=== PATIENT | male | born 1970 | race Two or more races ===

== ENCOUNTER 2025-01-05 01:17 | Observation (INO) | payer OTHER, SELFPAY ==
[2025-01-04 18:03] VITALS: BP 144/97; BMI 23.1
--- NOTE | 2025-01-04 19:37 | ED.GENMED ---
History of Present Illness
General
Chief Complaint: Abnormal Lab Value
Time Seen by Provider: 01/04/25 19:04
History of Present Illness
History of Present Illness:
54-year-old male history of CHF, lung abscess currently on Ceftriaxone, Flagyl and vancomycin for the past 2 months presenting [address] chest. Patient states that he had outpatient CT chest that showed bilateral pulmonary embolism prompting
ED evaluation. Patient reports pleuritic right-sided chest pain for the past few weeks. Patient denies fever, cough, or shortness of breath. Patient is not on blood thinners. Patient denies any history of DVT/PE.
Phy Exam
Physical Exam
Physical Exam:
General: Alert, no acute distress
Head: NCAT
Eyes: clear conjunctiva
Neck: supple
Cardiac: regular rate and rhythm, no murmur
Lungs: clear to auscultation bilaterally. No wheezes, rales, or rhonchi. Speaking full unlabored sentences. No respiratory distress.
Abdomen: soft, nondistended nontender. No rebound or guarding.
MSK: no lower extremity edema bilaterally. No deformity. PICC line right upper extremity with no surrounding erythema or swelling.
Skin: warm, dry
Neuro: Alert and oriented x3. no focal deficits
Scores
PESI
Age: 54
Sex: Male
History of cancer: No
History of heart failure: Yes
History of chronic lung disease: No
Heart rate >/= 110: No
Systolic BP <100 mmHg: No
Respiratory rate >/= 30: No
Temperature <36�C/96.8�F: No
Altered mental status (disorientation, lethargy, stupor, or coma): No
O2 saturation <90%: No
Score: 73
Class: Class 2: <86 (low mortality 1.7-3.5%)
Course
Orders/Labs/Results
Orders:
Orders
01/04/25 19:49
CBC/With Diff [Complete Blood Count/With Diff] Urgent
CMP [Comprehensive Metabolic Panel] Urgent
NT-proBNP Urgent
Protime/PTT Urgent
Troponin I Urgent
01/04/25 20:06
EKG [Electrocardiogram (*1)] Urgent
Reason for Study: Chest Pain
EKG- Treatment ONCE
01/04/25 22:53
Heparin 5,800 units IV NOW STA
Nursing to Place Non Medication Order As Directed
Physician Order: PTT 6 hours after initial start of Heparin infusion
01/04/25 23:00
Flush (0.9% Sodium Chloride) [Flush (Nss)] See Dose Instructions IV PER PROTOCOL
Heparin 21631 Units/250 ml 25,000 units in 250 ml IV PER PROTOCOL
Weight to be used for heparin protocol in kilograms (kg):: 72.9
Protocol:: DVT/PE
PTT Goal Range to be used:: PTT 73 to 111 seconds
Order type:: Initial
INITIAL Infusion Dose (UNITS/KG/hr) & then follow protocol:: 18 units/kg/hr
Infusion Dose in UNITS/hr & then follow protocol (UNITS/hr):: 1,300
INFUSION RATE in mL/hr & then follow protocol (mL/hr):: 13
For DVT/PE algorithm, re-bolus for low PTT?: Yes
PTT less than or equal to 64 seconds:: Re-bolus 80 units/kg (max 10,000units). Increase by 300 units/hr
(+ 3mL/hr)
PTT 64.1 to 72.9 seconds:: Re-bolus 40 units/kg (max 5,000 units). Increase by 100 units/hr
(+ 1mL/hr)
PTT 73 to 111 seconds:: Target Range. No change in rate.
PTT 111.1 to 130.9 seconds:: Decrease rate by 100 units/hr (- 1 mL/hr)
PTT 131 to 199.9 seconds:: HOLD for 1 hr. Then decrease by 200 units/hr (- 2mL/hr)
PTT greater than or equal to 200 seconds:: HOLD for 2 hrs & Notify Provider. Then decrease by 300 units/hr
(- 3mL/hr)
Lab follow-up:: Each change, PTT q6h until 2 consecutive are therapeutic. Then
PTT daily.
01/04/25 23:16
Heparin 5,800 units IV PRN PRN
01/04/25 23:17
Heparin 2,900 units IV PRN PRN
01/05/25 00:10
Portable Chest Xray [CR Chest Portable - 1 View] Urgent
Comment:
Reason For Exam: PICC PLACEMENT
Reason Study Needs to be Portable: Unable to Transport
01/05/25 00:37
Admit/Transfer Patient As Directed
Co-Sign Provider:
Level of Care: Observation services
Assign to:: Telemetry
Physician / Group: hospitalist
Diagnosis: pulmonary embolism
Reason for Telemetry: Other
Other Reason for Telemetry: pulmonary embolism
Date to Stop Telemetry: 01/07/25
Time to Stop Telemetry: 11:00
01/05/25 00:38
PRN Pain Medication Management As Directed
May give lesser potent ordered pain med per pt: Yes
preference::
Protocol:: Medication orders for pain may be administered in a
manner that supports deferring to patient preference
when the pt is:
- Requesting an ordered lesser potent pain medication.
Least to most potent pain medications are defined
as: acetaminophen < NSAID < tramadol < opioids
(morphine, oxycodone, hydromorphone).
- Requesting a lesser dose of the same medication IF
ORDERED.
- Requesting a less intrusive route of administration
if both routes are prescribed by the provider (PO <
IV).
01/05/25 00:40
Code Status As Directed
Resuscitation Status: Full Code
01/05/25 05:45
PTT Routine
01/07/25 11:00
DC Protocol for Telemetry ONCE
Abnormal Lab Results
01/04/25 01/04/25
19:49 23:35
RBC 4.13 L 10^6/uL
(4.70-6.10)
Hgb 10.3 L g/dL
(13.0-18.0)
Hct 33.6 L %
(39.0-52.0)
MCH 24.9 L pg
(27.0-31.0)
MCHC 30.7 L g/dL
(33.0-37.0)
RDW 17.9 H %
(11.5-14.5)
Abs Immat Gran (auto) 0.1 H 10^3/uL
(0-0.05)
Absolute Lymphs (auto) 3.7 H 10^3/uL
(1.2-3.4)
Absolute Monos (auto) 0.7 H 10^3/uL
(0.1-0.6)
Immature Gran % 1.0 H %
(0-0.5)
Neutrophils % 32.1 L %
(42.2-75.2)
Monocytes % 9.9 H %
(1.7-9.3)
Chloride 112 H mmol/L
(98-107)
Carbon Dioxide 19 L mmol/L
(22-30)
Total Protein 6.1 L g/dl
(6.3-8.2)
Albumin 3.1 L g/dl
(3.5-5.0)
POC Glucose 189 H mg/dl
(70-99)
01/04/25 19:49
01/04/25 19:49
Vital Signs
Initial and Last Documented VS:
Initial Vital Signs
Temp Pulse Resp BP Pulse Ox
98.2 F 78 12 144/97 100
01/04/25 18:03 01/04/25 18:03 01/04/25 18:03 01/04/25 18:03 01/04/25 18:03
Last Documented Vital Signs
Temp Pulse Resp BP Pulse Ox
97.8 F 89 16 139/93 99
01/05/25 00:00 01/05/25 00:01 01/05/25 00:01 01/05/25 00:01 01/05/25 00:01
MDM/Problems Addressed
MDM/Problems Addressed:
CT chest with contrast completed outpatient earlier today reviewed. Shows 1. Right lower lobe pulmonary abscess measuring 4.0 x 2.7 x 2.6 cm. 2. Small right pleural effusion. 3. Pulmonary thromboembolus involving segmental branches of the bilateral
lower lobes. Overall low clot burden. No evidence for right heart strain. As read by radiology
Labs reviewed, troponin and probnp within normal limits.
EKG shows NSR at 83bpm with [place] 146 QTc 446 no acute ischemic changes.
Started patient on Heparin
Discussed with hospitalist for admission
*Critical Care Note
Total Time (30-74mins, 75-104mins- exclusive of procedures): Not Applicable
ED Attending Note
-
Portions of this chart may have been created with voice recognition software.� Occasional wrong word or��sound alike� substitutions may have occurred due to the inherent limitations of voice recognition software.
Discharge Plan
Departure
Patient Disposition: Admit
Date of Disposition: 01/04/25
Time of Disposition: 22:59
Presentation/result/management discussed w/ accepting MD/DO: Hospitalist
Discharge Problem:
Bilateral pulmonary embolism, Abscess of lung
Interventions
Interventions:
*Risk Screen - Suicide Last Done: 01/04/25 18:03
*General Assessment Last Done: 01/04/25 18:03
*Neglect/Abuse Screening Last Done: 01/04/25 18:03
ED- Fall Risk Assessment Last Done: 01/04/25 19:31
*ED COVID-19 Vaccine History Last Done: 01/04/25 19:31
[2025-01-04 20:07] LABS: Hematocrit 33.6 % (39.0-52.0); Hemoglobin 10.3 g/dL (13.0-18.0); Mean Corp Hgb Conc. 30.7 g/dL (33.0-37.0); Mean Corpuscular Hgb 24.9 pg (27.0-31.0); Mean Corpuscular Volume 81.4 fL (80.0-94.0); Platelet Count 353 10^3/uL (130-400); Red Blood Cell Count 4.13 10^6/uL (4.70-6.10); Red Cell Dist. Width 17.9 % (11.5-14.5); White Blood Cell Count 7.2 10^3/uL (4.8-10.8)
[2025-01-04 20:12] LABS: PT 13.7 Sec (11.4-14.6)
[2025-01-04 20:13] LABS: APTT 29.1 Sec (23.4-35.0)
[2025-01-04 20:20] LABS: ALT (SGPT) 11 U/L (0-50); AST (SGOT) 19 U/L (17-59); Albumin 3.1 g/dl (3.5-5.0); Alkaline Phosphatase 82 U/L (38-126); Blood Urea Nitrogen 11 mg/dl (9-20); Calcium 9.2 mg/dl (8.4-10.2); Carbon Dioxide 19 mmol/L (22-30); Chloride 112 mmol/L (98-107); Estimated Creatinine Clearance 80 ml/min; Glucose 91 mg/dl (70-99); Sodium 140 mmol/L (135-145); Total Bilirubin 0.3 mg/dl (0.2-1.3); Total Protein 6.1 g/dl (6.3-8.2); eGFR > 60.00
[2025-01-04 20:32] LABS: NT-proBNP 45.8 pg/ml; Troponin I < 0.012 ng/ml
[2025-01-04 20:33] LABS: % Monocytes 9.9 % (1.7-9.3); % Neutrophils 32.1 % (42.2-75.2); Absolute Basophils 0.1 10^3/uL (0-0.2); Absolute Eosinophils 0.4 10^3/uL (0-0.7); Absolute Immature Granulocytes 0.1 10^3/uL (0-0.05); Absolute Lymphocytes 3.7 10^3/uL (1.2-3.4); Absolute Monocytes 0.7 10^3/uL (0.1-0.6); Absolute Neutrophils 2.3 10^3/uL (1.4-6.5); Nucleated Red Blood Cells % 0 % (-)
[2025-01-04 20:39] LABS: Anisocytosis 2+; Macrocytosis 2+; Normal RBC Morphology No
[2025-01-04 20:40] LABS: Hypochromasia 2+; Ovalocytes Occasional; Target Cells 1+; Tear Drop Red Blood Cells 1+
--- NOTE | 2025-01-04 21:30 | VATNOTE ---
[facility] WITH 5FR SL R PICC INSERTED AT [facility] FOR HOME ABX ON UNKNOWN DATE. DRSG C/D/I. PICC FLUSHES WELL AND HAS A GOOD BR. CAP CHANGED. AWAITING CXR FOR TIP LOCATION. PCN AWARE OF INTERVENTION.
[2025-01-04 22:00] VITALS: BP 156/97
[2025-01-04 23:00] VITALS: BP 115/63
[2025-01-04] MEDS: HEPARIN 5800 UNITS IV (23:31)
[2025-01-04] MEDS: HEPARIN 25000 UNITS/250 ML IV (23:36)
[2025-01-04 23:37] LABS: Glucose - Point of Care 189 mg/dl (70-99)
[2025-01-05] VITALS (9 sets, daily range): BP systolic 119–141; BP diastolic 76–104; BMI 22.5; BMI 22.2; BMI 20.7
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
[2025-01-05] MEDS: DILAUDID 0.5 MG IV (02:01)
[2025-01-05] MEDS: FLAGYL 500 MG PO ×4 (02:01→23:41)
[2025-01-05 06:35] LABS: Hematocrit 32.6 % (39.0-52.0); Hemoglobin 10.4 g/dL (13.0-18.0); Mean Corp Hgb Conc. 31.9 g/dL (33.0-37.0); Mean Corpuscular Hgb 25.8 pg (27.0-31.0); Mean Corpuscular Volume 80.9 fL (80.0-94.0); Mean Platelet Volume 9.6 fL (7.4-10.4); Platelet Count 373 10^3/uL (130-400); Red Blood Cell Count 4.03 10^6/uL (4.70-6.10); Red Cell Dist. Width 17.7 % (11.5-14.5); White Blood Cell Count 10.8 10^3/uL (4.8-10.8)
[2025-01-05 06:49] LABS: APTT 155.3 Sec (23.4-35.0)
[2025-01-05 10:00] LABS: Glucose - Point of Care 83 mg/dl (70-99)
[2025-01-05] MEDS: ROCEPHIN 2000 MG IV (10:08)
[2025-01-05] MEDS: VANCOCIN 200 IV (10:08)
[2025-01-05] MEDS: STERILE WATER FOR INJECTION 20 ML IV (10:09)
[2025-01-05] MEDS: TOPAMAX 25 MG PO ×2 (10:10→21:50)
[2025-01-05] MEDS: VITAMIN B-12 100 MCG PO (10:10)
[2025-01-05] MEDS: ALDACTONE 12.5 MG PO (10:10)
[2025-01-05] MEDS: PROTONIX 40 MG PO ×2 (10:10→17:19)
[2025-01-05] MEDS: NEURONTIN 200 MG PO ×2 (10:10→21:49)
[2025-01-05] MEDS: FOLVITE 1 MG PO (10:10)
[2025-01-05] MEDS: ZESTRIL 10 MG PO (10:11)
[2025-01-05] MEDS: CYMBALTA DELAYED RELEASE 60 MG PO (10:11)
[2025-01-05] MEDS: KEPPRA 1000 MG PO ×2 (10:11→21:49)
[2025-01-05] MEDS: COREG 25 MG PO ×2 (10:11→21:49)
[2025-01-05] MEDS: FEOSOL 325 MG PO (10:11)
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
--- NOTE | 2025-01-05 13:30 | CM ---
CM was requested to obtain medical records from [facility]. CM requested assistance from ED community services coordinator.
[2025-01-05 13:40] LABS: Glucose - Point of Care 122 mg/dl (70-99)
[2025-01-05 14:53] LABS: APTT 41.9 Sec (23.4-35.0)
[2025-01-05] MEDS: HEPARIN 5800 UNITS IV (15:31)
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
--- NOTE | 2025-01-05 17:09 | CON.ID ---
Consultation
-
Date/Time Consultation Requested: 01/05/2025 0127
Date/Time Consultation Performed: 01/05/2025 1710
Requesting Provider: Neeraj
Performing Provider: Jen
Reason for Consultation: Pulmonary abscess
Chief Complaint / Past History
History of Present Illness
Clive Peter is a 54-year-old incarcerated male being evaluated in Infectious Diseases consultation regarding pulmonary abscess. History is obtained from chart review, along with patient interview, and review of old records contained in the
outpatient EMR system.
The patient recently was hospitalized at [facility] for necrotizing pneumonia and multifocal lung abscess secondary to MRSA and Klebsiella pneumoniae.
According to the history, the patient had [facility] Staff there evidently witnessed a fall and tonic-clonic seizure. A CT scan of the chest on 11/24 revealed bilateral lower lobe consolidation with
central lucencies concerning for aspiration pneumonia. Additional concern was for ongoing aspiration secondary to vocal cord dysfunction. Bronchoscopy was performed, with recovery of MRSA and Klebsiella, and he was discharged from [facility] on
12/06. [facility] and seen in the outpatient setting on 01/01. At that time, antibiotics were restarted, to continue with an additional 2 weeks of antibiotics, with actual duration dependent upon
follow-up imaging. A repeat CT scan was performed yesterday, which revealed improvement in size of the abscess, but also the findings of PE.
At this time, he denies any fevers. He does admit to cough, but no shortness of breath.
Past History
Additional Past Medical History:
DM
Subdural hematoma
Additional Past Surgical History:
Right femur intramedullary penelope (01/08/2024)
Allergy History:
aspirin Allergy (Unknown, Verified 01/04/25 18:03)
Unknown
Penicillins Allergy (Unknown, Verified 01/04/25 18:03)
Unknown
Medications Reviewed: Yes
Current Antibiotics:
Vancomycin 1 g every 24 hours
Ceftriaxone 2 g IV every 24 hours
Metronidazole 500 mg p.o. every 8 hours
Social History
Tobacco: Former Smoker
Alcohol: Occasional
Drug: Former User
Personal: Single
Living: Detention
Employment: Not Employed
Family History
Family History: Not Pertinent
Review of Systems
Vital Signs
Temp Pulse Resp BP Pulse Ox
98.5 F 86 11 119/77 99
01/05/25 16:24 01/05/25 16:00 01/05/25 16:00 01/05/25 15:50 01/05/25 13:00
Physical Exam
Physical Exam
Constitutional: No Acute Distress, Comfortable and Non-toxic
Eyes: No Conjunctival Hemorrhage and Sclera Anicteric
Oral: No Thrush and No Ulcers
Cardiovascular: Regular Rate and S1/S2; Negative S3/S4
Pulmonary: Coarse and Non Labored; Negative Wheezes or Rales
Gastrointestinal: Soft, Non Tender and Non Distended
Extremities: Negative Edema, Cyanosis or Erythema
Neurological: Awake and Alert
Psychological: Calm
Lines: PICC (Right upper extremity; exit site without erythema or tenderness)
Lab / Diagnostic Study Results
01/05/25 06:17
01/04/25 19:49
Abs Immat Gran (auto) 0.1 10^3/uL (0-0.05) H 01/04/25 19:49
Absolute Neuts (auto) 2.3 10^3/uL (1.4-6.5) 01/04/25 19:49
Absolute Lymphs (auto) 3.7 10^3/uL (1.2-3.4) H 01/04/25 19:49
Absolute Monos (auto) 0.7 10^3/uL (0.1-0.6) H 01/04/25 19:49
Absolute Basos (auto) 0.1 10^3/uL (0-0.2) 01/04/25 19:49
Immature Gran % 1.0 % (0-0.5) H 01/04/25 19:49
Neutrophils % 32.1 % (42.2-75.2) L 01/04/25 19:49
Lymphocytes % 51.0 % (20.5-51.1) 01/04/25 19:49
Monocytes % 9.9 % (1.7-9.3) H 01/04/25 19:49
Eosinophils % 5.0 % (0-6) 01/04/25 19:49
Basophils % 1.0 % (0-2) 01/04/25 19:49
PT 13.7 Sec (11.4-14.6) 01/04/25 19:49
INR 1.00 01/04/25 19:49
Microbiology Results
Micro:
01/05/25 01:54 MRSA Screen - Pending
Nose
Imaging:
01/04/2025 CT chest with IV contrast: A right lower lobe pulmonary abscess measures 4.0 x 2.7 x 2.6 cm. Small right pleural effusion is noted. There are pulmonary thromboembolus involving segmental branches of the bilateral lower lobes. Overall
low clot burden. No evidence for right heart strain.
Assessment / Plan
Pulmonary abscess; right lower lobe
-On IV antibiotics
-Per notes, size has decreased from 7 cm to 5 cm, and now to 4 cm on most recent imaging
Pulmonary embolus
Recommendations:
In review of outpatient notes, the patient was restarted on antibiotic therapy, to continue for at least an additional 2 weeks.
At present, can return to correctional facility on IV antibiotics.
He will be followed up by ID in the outpatient setting.
Weekly Vanco levels to prevent nephrotoxicity.
Weekly baseline labs, including CBC, BMP and LFTs.
Care Review
Plan reviewed with: Physician (Hospitalist)
[2025-01-05 17:23] LABS: Glucose - Point of Care 134 mg/dl (70-99)
[2025-01-05] MEDS: SEROQUEL 50 MG PO (21:50)
[2025-01-05] MEDS: HEPARIN 25000 UNITS/250 ML IV (21:55)
--- NOTE | 2025-01-05 22:00 | PTCARENOTE ---
Pt. admitted from E.D., AAO x 3, NSR on monitor, vs stable, call osborne within reach.
[2025-01-05 22:04] LABS: APTT > 200 Sec (23.4-35.0)
[2025-01-05 22:18] LABS: Glucose - Point of Care 133 mg/dl (70-99)
[2025-01-05] MEDS: LANTUS 0.15 UNITS SC (22:21)
[2025-01-06 03:04] VITALS: BP 100/66
[2025-01-06] MEDS: VANCOCIN 200 IV (05:37)
[2025-01-06 05:48] VITALS: BMI 22.2
[2025-01-06] MEDS: FLUSH (NSS) 2 FLUSH IV (06:06)
[2025-01-06 07:00] VITALS: BP 110/72
[2025-01-06 07:03] LABS: Glucose - Point of Care 145 mg/dl (70-99)
[2025-01-06 08:28] LABS: Blood Urea Nitrogen 13 mg/dl (9-20); Carbon Dioxide 21 mmol/L (22-30); Chloride 111 mmol/L (98-107); Estimated Creatinine Clearance 77 ml/min; Glucose 123 mg/dl (70-99); Potassium 3.7 mmol/L (3.5-5.1); Sodium 138 mmol/L (135-145); eGFR > 60.00
[2025-01-06] MEDS: ALDACTONE 12.5 MG PO (09:47)
[2025-01-06] MEDS: FLAGYL 500 MG PO (09:48)
[2025-01-06] MEDS: PROTONIX 40 MG PO (09:48)
[2025-01-06] MEDS: VITAMIN B-12 100 MCG PO (09:48)
[2025-01-06] MEDS: ELIQUIS 10 MG PO (09:48)
[2025-01-06] MEDS: NEURONTIN 200 MG PO (09:49)
[2025-01-06] MEDS: KEPPRA 1000 MG PO (09:49)
[2025-01-06] MEDS: FOLVITE 1 MG PO (09:49)
[2025-01-06] MEDS: COREG 25 MG PO (09:49)
[2025-01-06] MEDS: FEOSOL 325 MG PO (09:50)
[2025-01-06] MEDS: ROCEPHIN 2000 MG IV (09:50)
[2025-01-06] MEDS: ZESTRIL 10 MG PO (09:50)
[2025-01-06] MEDS: TOPAMAX 25 MG PO (09:50)
[2025-01-06] MEDS: STERILE WATER FOR INJECTION 20 ML IV (09:51)
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
--- NOTE | 2025-01-06 10:50 | W.DCSUMMARY ---
Discharge Summary
Discharge Data
Date of Admission: 01/05/25
Date of Discharge: 01/06/25
-
Pending Results: No
Hospital Course
53-year-old male past medical history of lung abscess, seizure disorder, hypertension, diabetes mellitus, neuropathy, anemia, mood disorder is presented with abnormal CT chest as outpatient. Patient underwent CT chest as outpatient to assess for
pulmonary abscess and was found to have pulmonary embolism. Patient was started on heparin infusion. Patient was eval by ID and pulmonary. In discussion with infectious disease it was found that patient pulmonary abscess is decreased in size and
plan is to continue antibiotics for additional 2 weeks and follow-up with infectious disease as outpatient. Patient was also found to have right lower extremity DVT. IV heparin was transitioned to p.o. Eliquis. All other patient medications were
continued and no changes were made. Patient be discharged back to the [facility].
Discharge Plan
-
Patient Disposition: Long Term
Discharge Diagnosis/Procedures: Pulmonary embolism
Persistent pulmonary abscess
Right lower extremity DVT
Condition: Fair
Diet: Regular
Activity: With assistance and As tolerated
Driving Restrictions: As prior to admission
Blood Work: Weekly Vanco levels to prevent nephrotoxicity.
Weekly baseline labs, including CBC, BMP and LFTs.
Results faxed over to primary doctor and Dr. Larios
Activity Restrictions/Additional Instructions:
Continue antibiotics for at least an additional 2 weeks. Follow up with Dr. Larios for further additional recs.
Referrals:
[facility] [Family Provider] -
Lynette Larios MD [Active] - in two weeks (f/u for further recs for antibiotics management. CALL TO MAKE APPT)
Prescriptions:
New
Eliquis 5 mg tablet
See Rx Instructions .ROUTE .COMPLEX Qty: 72 0RF
Rx Instructions:
10MG PO BID for additional 13 doses than 5mg po bid
Continued
carvedilol [Coreg] 25 mg Tablet
25 mg PO BID
insulin glargine [Lantus U-100 Insulin] 100 unit/mL Solution
15 unit SC HS
cyanocobalamin (vitamin B-12) 100 mcg Tablet
100 mcg PO DAILY
ceftriaxone 2 gram Recon Soln
2 g IV Q24H
levetiracetam 500 mg Tablet
1,000 mg PO BID
topiramate 25 mg Tablet
25 mg PO BID
metronidazole 500 mg Tablet
500 mg PO Q8H
acetaminophen 500 mg Tablet
1,000 mg PO TIDPRN PRN (Reason: mild pain/fever)
spironolactone 25 mg Tablet
12.5 mg PO DAILY
ferrous sulfate 325 mg (65 mg iron) Tablet
325 mg PO DAILY
lisinopril 10 mg Tablet
10 mg PO DAILY
omeprazole 20 mg Capsule,Delayed Release(Dr/Ec)
40 mg PO BID
folic acid 1 mg Tablet
1 mg PO DAILY
gabapentin 100 mg Capsule
200 mg PO BID
duloxetine [Cymbalta] 60 mg Capsule,Delayed Release(Dr/Ec)
60 mg PO DAILY
quetiapine 50 mg Tablet
50 mg PO HS
vancomycin 2 gram Recon Soln
1 g IV Q24H
Discontinued
heparin (porcine)
1 dose SC BID
Discharge Orders:
Discharge Patient (As Directed); Ordered 01/06/25
Ordered By: Tomas Swasnon
Discharge Date and Time
Print Language: THAI
[2025-01-06 11:00] VITALS: BP 120/84
[2025-01-06] MEDS: CYMBALTA DELAYED RELEASE 60 MG PO (11:21)
[2025-01-06 11:25] LABS: Glucose - Point of Care 108 mg/dl (70-99)
--- NOTE | 2025-01-06 11:39 | PHA.VAN.IN ---
Assessment
- Assessment
Renal Function: Unknown baseline
Maximum Temperature: 98.2
Minimum Temperature: 98.1
Concomitant Antimicrobials: Metronidazole, ceftriaxone
Plan
- Plan
Maintenance Regimen: Vanc 1000mg IV s83D--bv as outpt. Restarted 01/01 for 2 weeks
Monitoring: R = 35 today--drawn after vanco infused. Will order R for 3/2 AM
Pharmacokinetics Vancomycin I
- -
Patient Age: 54
Patient Sex: Male
Vancomycin Day #: 2
Indication: Pulmonary/Respiratory
Requesting Provider: Neeraj
Pertinent Antimicrobial Allergies:
Penicillin = unknown
Height / Weight:
Height 5 ft 10 in
Actual Weight 70.307 kg
IBW in k
Pertinent Past Medical History: Necrotizing pneumonia; multifocal lung abscess--MRSA and Klebsiella pneumon
- Vital Signs / Lab Results
Temp Pulse Resp BP Pulse Ox
98.1 F 84 16 113/79 100
01/06/25 07:00 01/06/25 09:50 01/06/25 07:00 01/06/25 09:50 01/06/25 07:00
Lab Results - Hematology
01/04/25 01/05/25
19:49 06:17
WBC 7.2 10.8
Lab Results - Chemistry
01/04/25 01/06/25
19:49 06:29
BUN 11 13
Creatinine 1.1 1.1
Estimated Creat Clear 80 77
Albumin 3.1 L
Microbiology Results
01/05/25 01:54 MRSA Screen - Final
Nose No Methicillin Resistant Staphylococcus aureus isolated.
--- NOTE | 2025-01-06 11:50 | CM ---
event manager reviewed patient's chart and patient was admitted from [facility], and plan is for patient to return to [facility] today.
[facility]
Report [phone]
fax [phone]
--- NOTE | 2025-01-06 11:56 | PTCARENOTE ---
Assumed care of pt from previous nurse. Pt denies pain. Heparin drip dc'd. [facility]. Report called.
--- NOTE | 2025-01-06 15:01 | PTCARENOTE ---
pt dc'd to [facility], guards transported pt. IV removed, PICC remained in for continued IV antibiotics
== END 2025-01-06 14:49 ==
LOC: 4 WEST ACU 01:17
PROVIDERS: Internal Medicine Critical Care Medicine; ADMITTING PHYSICIAN Internal Medicine; ATTENDING PHYSICIAN Hospitalist; CONSULT PHYSICIAN Internal Medicine Infectious Disease; EMERGENCY PHYSICIAN Emergency Medicine; OTHER PHYSICIAN Internal Medicine Critical Care Medicine
DX: I26.94 Multiple subsegmental thrombotic pulmonary emboli without acute cor pulmonale (principal); J85.2 Abscess of lung without pneumonia; R07.9 Chest pain, unspecified; R79.89 Other specified abnormal findings of blood chemistry; I82.451 Acute embolism and thrombosis of right peroneal vein; I10 Essential (primary) hypertension; D50.9 Iron deficiency anemia, unspecified; F39 Unspecified mood [affective] disorder; B96.1 Klebsiella pneumoniae [K. pneumoniae] as the cause of diseases classified elsewhere; B95.62 Methicillin resistant Staphylococcus aureus infection as the cause of diseases classified elsewhere; J98.11 Atelectasis; J90 Pleural effusion, not elsewhere classified; R05.9 Cough, unspecified; V89.2XXS Person injured in unspecified motor-vehicle accident, traffic, sequela; G40.909 Epilepsy, unspecified, not intractable, without status epilepticus; E11.40 Type 2 diabetes mellitus with diabetic neuropathy, unspecified; R94.31 Abnormal electrocardiogram [ECG] [EKG]; R94.2 Abnormal results of pulmonary function studies; Z87.820 Personal history of traumatic brain injury; Z79.4 Long term (current) use of insulin; Z79.2 Long term (current) use of antibiotics; Z99.3 Dependence on wheelchair; Z87.891 Personal history of nicotine dependence; Z88.0 Allergy status to penicillin; Z88.6 Allergy status to analgesic agent
CPT/HCPCS: 71045; 80048; 80053; 80202; 82962; 83880; 84484; 85025; 85027; 85610; 85730; 87070; 93005; 93970; 96374; 99285; G0378

== ENCOUNTER 2025-03-02 06:02 | Outpatient (RCR) | payer OTHER, SELFPAY | END 2025-03-02 09:38 | disposition home or self-care (01) | LOC: RPT 06:02 | PROVIDERS: ATTENDING PHYSICIAN Physician Assistant | DX: M25.551 Pain in right hip (principal); Z73.6 Limitation of activities due to disability | CPT/HCPCS: 97110; 97161 ==